=== PATIENT | female | born 1945 | race Caucasian/White ===

== ENCOUNTER 2018-10-13 14:15 | Emergency (ER) | payer OTHER ==
[2018-10-13 15:00] VITALS: BP 140/70; PULSE 80; TEMP 100.1; BMI 19.5
--- NOTE | 2018-10-13 15:49 | PDOC ---
History of Present Illness - General History Source: Patient, [facility] Records - History of Present Illness Initial Comments: 10/13/18 15:57 The patient is a 73 year old female with a past medical history of HTN, HLD, type 1 diabetes, diabetic retinopathy, COPD, and dementia here today from [facility] for evaluation s/p fall. She reports that she fell recently and was told that she sprained her right ankle (patient seen at [facility]). The patient reports she fell today when she felt her legs give out and fell to her knees (intermediate staff confirms story) . She denies head strike and reports numbness in the bottom of her feet and pain in her right ankle and hip. Patient denies headache, lightheadedness. Denies fever, chills. Denies chest pain, shortness of breath. Denies nausea, vomiting, diarrhea, abdominal pain. Allergies: sulfacetamide PCP: Edwin Alvarenga <Brown Saez - Last Filed: 10/13/18 16:09> <Vazquez Vargas - Last Filed: 10/13/18 16:49> - General Chief Complaint: Injury Stated Complaint: FALL Time Seen by Provider: 10/13/18 15:20 Past History <Brown Saez - Last Filed: 10/13/18 16:09> - Past Medical History CVA: Yes (TIA) COPD: No Dementia: Yes Diabetes: Yes (macular edema,) GI Disorders: Yes (gastroparesis, gerd, consstipation,) Disorders: Yes (hyperactive bladder) HTN: Yes - Suicide/Smoking/Psychosocial Hx Smoking History: Never smoked Hx Alcohol Use: No Drug/Substance Use Hx: No <Vazquez Vargas - Last Filed: 10/13/18 16:49> - Past Medical History Allergies/Adverse Reactions: Allergies Allergy/AdvReac Type Severity Reaction Status Date / Time sulfacetamide Allergy Verified 10/13/18 14:50 [From Sulfamide] Review of Systems - Review of Systems Able to Perform ROS?: Yes Comments:: 10/13/18 15:57 A complete review of 10 out of 10 review of systems is taken and is negative apart from what is previously mentioned below and in the HPI. <Brown Saez - Last Filed: 10/13/18 16:09> *Physical Exam - Vital Signs Last Vital Signs Temp Pulse Resp BP Pulse Ox 100.1 F H 80 16 140/70 100 10/13/18 14:45 10/13/18 14:45 10/13/18 14:45 10/13/18 14:45 10/13/18 14:45 - Physical Exam Comments: 10/13/18 16:11 Vitals: Triage vital signs reviewed General Appearance: No acute distress, well nourished, well developed Head: Atraumatic Chest Wall: Nontender Cardiac: Regular rate and rhythm, no murmurs, no rubs, no gallops Lungs: Clear to auscultation bilateral, good air movement bilaterally Abdomen: Soft, nondistended, normal bowel sounds, nontender to palpation Extremities: Full range of motion to all extremities, no cyanosis, clubbing, or edema Skin: Warm and dry, no rashes or lesions, no rash, no petechiae Neuro: AOX3; Cranial Nerves 2-12 grossly intact, Strength intact to all extremities, Sensation intact to all extremities Psych: Normal mood, normal affect <Brown Saez - Last Filed: 10/13/18 16:09> - Vital Signs Last Vital Signs Temp Pulse Resp BP Pulse Ox 100.1 F H 80 16 140/70 100 10/13/18 14:45 10/13/18 14:45 10/13/18 14:45 10/13/18 14:45 10/13/18 14:45 <Vazquez Vargas - Last Filed: 10/13/18 16:49> Moderate Sedation - Procedure Monitoring Vital Signs: Procedure Monitoring Vital Signs Temperature 100.1 F H 10/13/18 14:45 Pulse Rate 80 10/13/18 14:45 Respiratory Rate 16 10/13/18 14:45 Blood Pressure 140/70 10/13/18 14:45 O2 Sat by Pulse Oximetry (%) 100 10/13/18 14:45 <Brown Saez - Last Filed: 10/13/18 16:09> - Procedure Monitoring Vital Signs: Procedure Monitoring Vital Signs Temperature 100.1 F H 10/13/18 14:45 Pulse Rate 80 10/13/18 14:45 Respiratory Rate 16 10/13/18 14:45 Blood Pressure 140/70 10/13/18 14:45 O2 Sat by Pulse Oximetry (%) 100 10/13/18 14:45 <Vazquez Vargas - Last Filed: 10/13/18 16:49> ED Treatment Course - LABORATORY CBC & Chemistry Diagram: 10/13/18 16:00 10/13/18 16:00 <Vazquez Vargas - Last Filed: 10/13/18 16:49> Medical Decision Making - Medical Decision Making 10/13/18 15:58 The patient is a 73 year old female with a past medical history of HTN, HLD, type 1 diabetes, diabetic retinopathy, COPD, and dementia here today from [facility] for evaluation s/p fall. <Brown Saez - Last Filed: 10/13/18 16:09> - Medical Decision Making Multiple falls recently low-grade fever we'll check labs urine blood cultures head CT chest x-ray Dr. Corona to follow up labs and imaging and dispo <Vazquez Vargas - Last Filed: 10/13/18 16:49> *DC/Admit/Observation/Transfer - Attestations Scribe Attestion: 10/13/18 15:58 Documentation prepared by NOE Lagos, acting as medical asst for Vazquez Vargas MD. <Brown Saez - Last Filed: 10/13/18 16:09> <Vazquez Vargas - Last Filed: 10/13/18 16:49> Diagnosis at time of Disposition: Fall Qualifiers: Encounter type: initial encounter Qualified Code(s): W19.XXXA - Unspecified fall, initial encounter - Referrals Referrals: Edwin Alvarenga [Primary Care Provider] - - Patient Instructions - Post Discharge Activity
[2018-10-13 16:15] LABS: BASO % 0.7 % (0-2.0); EOS % 0.7 % (0-4.5); HEMATOCRIT 37.4 % (32.4-45.2); HEMOGLOBIN 12.4 GM/dL (10.7-15.3); LYMPH % 5.3 % (8-40); MCH 29.2 pg (25.7-33.7); MCHC 33.1 g/dl (32.0-36.0); MEAN CELL VOLUME 88.1 fl (80-96); MEAN PLT VOLUME 9.7 fl (7.5-11.1); MONO % 6.9 % (3.8-10.2); NEUT % 86.4 % (42.8-82.8); PLATELET COUNT 108 K/MM3 (134-434); RBC 4.25 M/mm3 (3.60-5.2); RDW 15.2 % (11.6-15.6); WHITE BLOOD COUNT 6.8 K/mm3 (4.0-10.0)
[2018-10-13 16:57] LABS: URINE APPEARANCE CLOUDY; URINE BILIRUBIN NEGATIVE (<2.0 mg/dL); URINE COLOR DKYELLOW; URINE GLUCOSE (UA) NEGATIVE (NEGATIVE); URINE KETONE NEGATIVE (NEGATIVE); URINE LEUK ESTERASE TRACE (NEGATIVE); URINE NITRITE NEGATIVE (NEGATIVE); URINE PROTEIN 3+ (NEGATIVE); URINE UROBILINOGEN NEGATIVE mg/dL (0.2-1.0)
[2018-10-13 17:00] LABS: EPI CELLS MANY /HPF (FEW); URINE HYALINE CAST 4 /lpf; URINE MUCUS RARE
[2018-10-13] MEDS ORDERED: OSELTAMIVIR PHOSPHATE 75 MG CAPSULE PO ONE (17:17)
[2018-10-13] MEDS ORDERED: OSELTAMIVIR PHOSPHATE 75 MG CAPSULE ONE (17:29)
[2018-10-13 17:41] LABS: ALBUMIN 3.6 g/dl (3.4-5.0); ALK PHOS 158 U/L (45-117); ANION GAP 15 MMOL/L (8-16); BILIRUBIN,TOTAL 0.9 mg/dL (0.2-1); BLOOD UREA NITROGEN 15 mg/dL (7-18); CALCIUM 9.3 mg/dL (8.5-10.1); CHLORIDE 99 mmol/L (98-107); CO2 23 mmol/L (21-32); CREATININE 1.1 mg/dL (0.55-1.3); GLUCOSE,RANDOM 74 mg/dL (74-106); POTASSIUM 4.3 mmol/L (3.5-5.1); SGOT/AST 32 U/L (15-37); SGPT/ALT 24 U/L (13-61); SODIUM 137 mmol/L (136-145); TOT PROT 7.4 g/dl (6.4-8.2)
[2018-10-13 17:43] LABS: PLATELET ESTIMATE SLT DECREASE
--- NOTE | 2018-10-13 20:19 | EKG ---
Test Reason : Blood Pressure : / mmHG Vent. Rate : 080 BPM Atrial Rate : 080 BPM P-R Int : 132 ms QRS Dur : 080 ms QT Int : 384 ms P-R-T Axes : 047 043 082 degrees QTc Int : 442 ms NORMAL SINUS RHYTHM NORMAL ECG NO PREVIOUS ECGS AVAILABLE Confirmed by CATIE VELÁSQUEZ MD ([id number]) on 10/13/2018 8:19:13 PM Referred By: Confirmed By:CATIE EVLÁSQUEZ MD
--- NOTE | 2018-10-13 21:17 | PDOC ---
*Physical Exam - Vital Signs Last Vital Signs Temp Pulse Resp BP Pulse Ox 100.1 F H 80 16 140/70 100 10/13/18 14:45 10/13/18 14:45 10/13/18 14:45 10/13/18 14:45 10/13/18 14:45 ED Treatment Course - LABORATORY CBC & Chemistry Diagram: 10/13/18 16:00 10/13/18 16:00 - ADDITIONAL ORDERS Additional order review: Laboratory Results 10/13/18 10/13/18 10/13/18 16:35 16:00 16:00 Sodium 137 Potassium 4.3 Chloride 99 Carbon Dioxide 23 Anion Gap 15 BUN 15 Creatinine 1.1 Creat Clearance w eGFR 48.55 Random Glucose 74 Lactic Acid 1.2 Calcium 9.3 Total Bilirubin 0.9 AST 32 ALT 24 Alkaline Phosphatase 158 H Troponin I 0.08 H Total Protein 7.4 Albumin 3.6 Urine Color Dkyellow Urine Appearance Cloudy Urine pH 5.0 Ur Specific [place] 1.020 Urine Protein 3+ H Urine Glucose (UA) Negative Urine Ketones Negative Urine Blood 1+ H Urine Nitrite Negative Urine Bilirubin Negative Urine Urobilinogen Negative Ur Leukocyte Esterase Trace Urine WBC (Auto) 9 Urine RBC (Auto) 15 Ur Epithelial Cells Many Hyaline Casts 4 Urine Mucus Rare 10/13/18 16:00 RBC 4.25 MCV 88.1 MCHC 33.1 RDW 15.2 MPV 9.7 Neutrophils % 86.4 H Lymphocytes % 5.3 L Monocytes % 6.9 Eosinophils % 0.7 Basophils % 0.7 - Medications Given in the ED: ED Medications Discontinued Medications Generic Name Dose Route Start Last Admin Trade Name Freq PRN Reason Stop Dose Admin Oseltamivir Phosphate 75 mg 10/13/18 17:17 10/13/18 17:36 Tamiflu - PO 10/13/18 17:18 75 mg ONCE ONE Administration Medical Decision Making - Medical Decision Making 10/13/18 21:16 I spoke with Ami ,the supervising nurse at [facility] was given report and a RX for tamiflu will be sent there 10/13/18 23:52 *DC/Admit/Observation/Transfer Diagnosis at time of Disposition: Influenza A Fall Qualifiers: Encounter type: initial encounter Qualified Code(s): W19.XXXA - Unspecified fall, initial encounter Diabetes Qualifiers: Diabetes mellitus type: type 2 Diabetes mellitus mcfp insulin use: without mcfp use Diabetes mellitus complication status: with unspecified complications Qualified Code(s): E11.8 - Type 2 diabetes mellitus with unspecified complications - Discharge Dispostion Condition at time of disposition: Stable - Prescriptions Prescriptions: Oseltamivir Phosphate [Tamiflu -] 75 mg PO BID #10 capsule Oseltamivir Phosphate [Tamiflu -] 75 mg PO BID #10 capsule - Referrals Referrals: Edwin Alvarenga [Primary Care Provider] - - Patient Instructions Printed Discharge Instructions: DI for Influenza -- Adult Additional Instructions: please take tylenol as needed for fever rest keep hydrated return for any worsening symptoms Be careful when you are walking and use your walker to help prevent falls Take the tamiflu as directed - Post Discharge Activity
--- NOTE | 2018-10-13 21:21 | HP ---
Admitting History and Physical - Primary Care Physician PCP: Santiago Hernandez - Admission History of Present Illness: 73 year old female with a past medical history of HTN, HLD, type 1 diabetes, diabetic retinopathy, COPD, and dementia here today from [facility] for evaluation s/p fall. She reports that she fell recently and was told that she sprained her right ankle (patient seen at [facility]). The patient reports she fell today when she felt her legs give out and fell to her knees (retirement staff confirms story). She denies head strike and reports numbness in the bottom of her feet and pain in her right ankle and hip. Patient denies headache, lightheadedness. Denies fever, chills. Denies chest pain, shortness of breath. Denies nausea, vomiting, diarrhea, abdominal pain. PCP: Edwin Alvarenga - Past Medical History [employer]: Yes: Dementia Cardiovascular: Yes: HTN, Hyperlipdemia Pulmonary: Yes: COPD Endocrine: Yes: Diabetes Mellitus - Smoking History Smoking history: Never smoked - Alcohol/Substance Use Hx Alcohol Use: No Home Medications - Allergies Allergies/Adverse Reactions: Allergies Allergy/AdvReac Type Severity Reaction Status Date / Time sulfacetamide Allergy Verified 10/13/18 14:50 [From Sulfamide] - Home Medications Home Medications: Ambulatory Orders Acetaminophen 325 mg PO 10/13/18 Albuterol 0.083% Nebulizer Cecilia [Ventolin 0.083%] 1 neb NEB QID 10/13/18 Albuterol 2.5/Ipratropium 0.5 [Duoneb -] 1 neb IH QID 10/13/18 Alprazolam [Xanax] 0.5 mg PO 10/13/18 Atorvastatin Ca [Lipitor] 10 mg PO HS 10/13/18 Budesonide/Formeterol Fumarate [SYMBICORT 160/4.5mcg -] 1 inh PO BID 10/13/18 Bupropion HCl [Wellbutrin Xl] 300 mg PO 10/13/18 Codeine Phosphate/Guaifenesin [Guaifenesin AC Cough Syrup] 473 ml PO 10/13/18 Codeine Phosphate/Guaifenesin [Guaifenesin AC Cough Syrup] 473 ml PO 10/13/18 Docusate Sodium [Dok] 100 mg PO 10/13/18 Famotidine 20 mg PO 10/13/18 Furosemide [Lasix] 20 mg PO 10/13/18 Gabapentin 300 mg PO 10/13/18 Guaifenesin 400 mg PO 10/13/18 Insulin Aspart [Novolog] 8 unit SQ ACLD 10/13/18 Insulin Glargine,Hum.rec.anlog [Lantus] 25 unit SQ HS 10/13/18 Linagliptin [Tradjenta] 5 mg PO DAILY 10/13/18 Lipase/Protease/Amylase [Creon Dr 3,000 Units Capsule] 1 each PO TID 10/13/18 Metoprolol Tartrate 25 mg PO DAILY 10/13/18 Mirtazapine [Remeron -] 15 mg PO DAILY 10/13/18 Oxycodone HCl 5 mg PO Q4HWA PRN 10/13/18 Sertraline HCl [Zoloft -] 50 mg PO DAILY 10/13/18 Sertraline HCl [Zoloft -] 100 mg PO DAILY 10/13/18 Trazodone HCl 150 mg PO HS 10/13/18 Physical Examination Vital Signs: Vital Signs Temperature 100.1 F H 10/13/18 14:45 Pulse Rate 80 10/13/18 14:45 Respiratory Rate 16 10/13/18 14:45 Blood Pressure 140/70 10/13/18 14:45 O2 Sat by Pulse Oximetry (%) 100 10/13/18 14:45 Constitutional: Yes: No Distress HENT: Yes: Atraumatic Neck: Yes: Supple Cardiovascular: Yes: Regular Rate and Rhythm Respiratory: Yes: Rhonchi Gastrointestinal: Yes: Normal Bowel Sounds Extremities: Yes: WNL Edema: No Edema: RLE: Trace Peripheral Pulses WNL: Yes Neurological: Yes: Alert, Oriented Labs: CBC, BMP 10/13/18 16:00 10/13/18 16:00 Imaging - Results Cat Scan: Report Reviewed Problem List - Problems (1) HTN (hypertension) Code(s): I10 - ESSENTIAL (PRIMARY) HYPERTENSION (2) Diabetes Code(s): E11.9 - TYPE 2 DIABETES MELLITUS WITHOUT COMPLICATIONS (3) Influenza A Code(s): J10.1 - FLU DUE TO OTH IDENT INFLUENZA VIRUS W OTH RESP MANIFEST (4) Fall Code(s): W19.XXXA - UNSPECIFIED FALL, INITIAL ENCOUNTER Qualifiers: Encounter type: initial encounter Qualified Code(s): W19.XXXA - Unspecified fall, initial encounter Assessment/Plan Laboratory Tests 10/13/18 10/13/18 10/13/18 16:00 16:00 16:00 WBC 6.8 RBC 4.25 Hgb 12.4 Hct 37.4 MCV 88.1 MCH 29.2 MCHC 33.1 RDW 15.2 Plt Count 108 L MPV 9.7 Absolute Neuts (auto) 5.9 Neutrophils % 86.4 H Lymphocytes % 5.3 L Monocytes % 6.9 Eosinophils % 0.7 Basophils % 0.7 Nucleated RBC % 0 Platelet Estimate Slt decrease Platelet Comment No clumping noted Sodium 137 Potassium 4.3 Chloride 99 Carbon Dioxide 23 Anion Gap 15 BUN 15 Creatinine 1.1 Creat Clearance w eGFR 48.55 Random Glucose 74 Lactic Acid 1.2 Calcium 9.3 Total Bilirubin 0.9 AST 32 ALT 24 Alkaline Phosphatase 158 H Troponin I 0.08 H Total Protein 7.4 Albumin 3.6 Urine Color Urine Appearance Urine pH Ur Specific [place] Urine Protein Urine Glucose (UA) Urine Ketones Urine Blood Urine Nitrite Urine Bilirubin Urine Urobilinogen Ur Leukocyte Esterase Urine WBC (Auto) Urine RBC (Auto) Ur Epithelial Cells Hyaline Casts Urine Mucus Influenza A (Rapid) Influenza B (Rapid) 10/13/18 10/13/18 16:11 16:35 WBC RBC Hgb Hct MCV MCH MCHC RDW Plt Count MPV Absolute Neuts (auto) Neutrophils % Lymphocytes % Monocytes % Eosinophils % Basophils % Nucleated RBC % Platelet Estimate Platelet Comment Sodium Potassium Chloride Carbon Dioxide Anion Gap BUN Creatinine Creat Clearance w eGFR Random Glucose Lactic Acid Calcium Total Bilirubin AST ALT Alkaline Phosphatase Troponin I Total Protein Albumin Urine Color Dkyellow Urine Appearance Cloudy Urine pH 5.0 Ur Specific [place] 1.020 Urine Protein 3+ H Urine Glucose (UA) Negative Urine Ketones Negative Urine Blood 1+ H Urine Nitrite Negative Urine Bilirubin Negative Urine Urobilinogen Negative Ur Leukocyte Esterase Trace Urine WBC (Auto) 9 Urine RBC (Auto) 15 Ur Epithelial Cells Many Hyaline Casts 4 Urine Mucus Rare Influenza A (Rapid) Positive A Influenza B (Rapid) Negative
[2018-10-13] MEDS ORDERED: ALPRAZolam 0.25 MG TABLET PO PRN (21:24)
[2018-10-13] MEDS ORDERED: ALBUTEROL SO4 2.5/IPRATROPIUM 0.5 INH SOL 3 ML VIAL.NEB. NEB PRN (21:30)
[2018-10-13] MEDS ORDERED: BUDESONIDE/FORMETEROL FUMARATE 160/4.5 mcg INHALER IH SCH (22:00)
[2018-10-13] MEDS ORDERED: ATORVASTATIN CA 10 MG TABLET (FP) PO SCH (22:00)
[2018-10-13] MEDS ORDERED: INSULIN SLIDING SCALE (NOVOLOG) 1 VIAL SQ SCH (22:00)
[2018-10-13] MEDS ORDERED: INSULIN (LEVEMIR) 100 UNITS/ML UNITS SQ SCH (22:00)
[2018-10-13] MEDS ORDERED: OSELTAMIVIR PHOSPHATE 30 MG CAPSULE PO SCH (22:00)
[2018-10-13] MEDS ORDERED: PATIENT'S OWN MEDICATION (NON-FORMULARY) (Lipase/Protease/Amylase [Creon Dr 3,000 Units Ca PO SCH (22:00)
[2018-10-14] MEDS ORDERED: sitaGLIPtin PHOSPHATE 100 MG TABLET (FP) PO SCH (07:00)
[2018-10-14] MEDS ORDERED: PATIENT'S OWN MEDICATION (NON-FORMULARY) (Linagliptin [Tradjenta] 5 MG) PO SCH (10:00)
[2018-10-14] MEDS ORDERED: MIRTAZAPINE 15 MG TABLET (FP) PO SCH (10:00)
[2018-10-14] MEDS ORDERED: METOPROLOL TARTRATE 25 MG TABLET (FP) PO SCH (10:00)
[2018-10-14] MEDS ORDERED: GABAPENTIN 300 MG CAPSULE (FP) PO SCH (10:00)
[2018-10-14] MEDS ORDERED: FUROSEMIDE 20 MG TABLET (FP) PO SCH (10:00)
== END 2018-10-14 ==
LOC: JER 14:15
DX: J09.X2 Influenza due to identified novel influenza A virus with other respiratory manifestations (principal); M25.551 Pain in right hip; M25.571 Pain in right ankle and joints of right foot; W18.39XA Other fall on same level, initial encounter; Y93.89 Activity, other specified; Y92.098 Other place in other non-institutional residence as the place of occurrence of the external cause; Y99.8 Other external cause status; R29.6 Repeated falls; I10 Essential (primary) hypertension; F03.90 Unspecified dementia, unspecified severity, without behavioral disturbance, psychotic disturbance, mood disturbance, and anxiety; J44.9 Chronic obstructive pulmonary disease, unspecified; E10.311 Type 1 diabetes mellitus with unspecified diabetic retinopathy with macular edema; Z79.4 Long term (current) use of insulin
CPT/HCPCS: 36415; 70450-TC; 71045-TC-FY; 80053; 81003; 81015; 82550; 82553; 82962; 83605; 84484; 85025; 87040; 87077; 87086; 87804; 93005; 93010; 99282-25